=== PATIENT | female | born 1970 | race African-American/Black ===

== ENCOUNTER 2017-07-14 23:02 | Emergency (ER) | payer OTHER ==
[~2017-07-14] VITALS: Ht 149.9 cm; Wt 72.1 kg
[~2017-07-14 23:02] MED LIST: FLOMAX0.4 MG PO; OXAYDO5 MG PO; ZOFRAN ODT8 MG PO
[2017-07-15 00:03] LABS: HEMATOCRIT 36.1 % (36.0-46.0); MCH 30.8 PG (29.0-34.0); MCHC 34.1 G/DL (30.0-36.0); MCV 90.3 FL (83-99); RBC DIS.WIDTH-CV 12.4 % (11.8-14.6); RBC DIS.WIDTH-SD 41.3 % (39-53); WHITE BLOOD COUNT 9.5 K/uL (4.1-10.2)
[2017-07-15 00:14] LABS: CHLORIDE 106 mEq/L (99-109); POTASSIUM 3.8 mEq/L (3.7-5.4); SODIUM 141 mEq/L (136-147)
[2017-07-15 00:16] LABS: GLUCOSE 95 mg/dL (70-99)
[2017-07-15 00:17] LABS: ANION GAP 14 MEQ/L (2-14)
[2017-07-15 00:20] LABS: GFR ESTIMATE (CALCULATED) > 59 mL/min/
[2017-07-15 00:21] LABS: UREA NITROGEN (BUN) 10 mg/dL (9-23)
[2017-07-15 00:32] LABS: QUANTITATIVE HCG < 4.0 MIU/ML
[2017-07-15 01:00] LABS: HEMATOLOGY COMMENT 1 SMEAR COMPATIBLE; PLAT.SUFFICIENCY ADEQUATE; PLATELET COUNT 198 K/uL (156-360)
[2017-07-15 02:39] LABS: ADD MIUA? NO; BILIRUBIN NEGATIVE; BLOOD NEGATIVE; COLOR YELLOW ((YELLOW)); GLUCOSE (STRIP) NEGATIVE; KETONES NEGATIVE; LEUKOCYTES NEGATIVE; NITRITE NEGATIVE; PROTEIN (STRIP) NEGATIVE; SPECIFIC GRAVITY 1.011 (1.000-1.030); UROBILINOGEN 0.2 MG/DL (0.2-1.0)
[2017-07-15 02:44] LABS: UCUL ADDED? NO
[2017-07-15] MEDS ORDERED: TYLENOL WITH C1 EACH PO (03:40)
[2017-07-15 03:57] VITALS: BP 118/95
== END 2017-07-15 03:57 | disposition home or self-care (01) ==
LOC: EME 23:02
DX: R10.9 Unspecified abdominal pain (principal); Z87.442 Personal history of urinary calculi; F17.200 Nicotine dependence, unspecified, uncomplicated; F32.9 Major depressive disorder, single episode, unspecified; Z88.8 Allergy status to other drugs, medicaments and biological substances
CPT/HCPCS: 74176; 80048; 81003; 84702; 85027; 99281; 99284

== ENCOUNTER 2017-12-18 15:42 | Observation (INO) | payer OTHER, BC ==
[~2017-12-18] VITALS: Ht 149.9 cm; Wt 75.2 kg
[~2017-12-18 15:42] MED LIST changes: +TYLENOL WITH C1 EACH PO
[2017-12-18 16:16] LABS: HEMATOCRIT 36.1 % (36.0-46.0); HEMOGLOBIN 12.6 G/DL (11.9-15.5); MCH 31.2 PG (29.0-34.0); MCHC 34.9 G/DL (30.0-36.0); MCV 89.4 FL (83-99); RBC DIS.WIDTH-CV 11.9 % (11.8-14.6); RBC DIS.WIDTH-SD 38.4 % (39-53); RED BLOOD COUNT 4.04 M/uL (3.80-5.20); WHITE BLOOD COUNT 6.6 K/uL (4.1-10.2)
[2017-12-18 16:25] LABS: CHLORIDE 105 mEq/L (99-109); POTASSIUM 3.6 mEq/L (3.7-5.4); SODIUM 138 mEq/L (136-147)
[2017-12-18 16:27] LABS: GLUCOSE 96 mg/dL (70-99)
[2017-12-18 16:31] LABS: CREATININE 0.8 mg/dL (0.6-1.3); GFR ESTIMATE (CALCULATED) > 59 mL/min/
[2017-12-18 16:32] LABS: UREA NITROGEN (BUN) 16 mg/dL (9-23)
[2017-12-18 16:38] LABS: TROP-I INTERPRETATION NEGATIVE; TROPONIN-I < 0.01 ng/mL (0.0-0.30)
[2017-12-18 17:16] LABS: PLAT.SUFFICIENCY ADEQUATE; PLATELET COUNT 211 K/uL (156-360)
[2017-12-18 19:30] LABS: TROP-I INTERPRETATION NEGATIVE; TROPONIN-I < 0.01 ng/mL (0.0-0.30)
[2017-12-18 20:55] LABS: HDL CHOLESTEROL 72 MG/DL (Desirable>=50); LDL CHOLESTEROL 134 mg/dL (Desirable<100); NON-HDL CHOLESTEROL 155 mg/dL (Desirable<160); TOTAL CHOLESTEROL 227 mg/dL (Desirable<200); TRIGLYCERIDES 104 MG/DL (Normal: <150)
[2017-12-18 21:27] LABS: TROP-I INTERPRETATION NEGATIVE; TROPONIN-I < 0.01 ng/mL (0.0-0.30)
[2017-12-18 21:53] VITALS: BP 128/72
[2017-12-19 00:01] VITALS: BP 102/50
[2017-12-19 00:57] LABS: TROP-I INTERPRETATION NEGATIVE; TROPONIN-I < 0.01 ng/mL (0.0-0.30)
[2017-12-19 04:10] VITALS: BP 124/56
[2017-12-19 08:04] VITALS: BP 111/58
[2017-12-19 08:19] LABS: TROP-I INTERPRETATION NEGATIVE; TROPONIN-I < 0.01 ng/mL (0.0-0.30)
== END 2017-12-19 11:30 | disposition home or self-care (01) ==
LOC: EME 15:42 → EDOF 19:48 → 5WEST 19:48 → EDOF 19:48 → ENRESERV 19:50 → 5WEST 21:28 → ENPENDDIS 12-19 → 5WEST 12-19 11:30
PROVIDERS: Hospitalist; Nurse Practitioner Family; Physician Assistant
DX: R07.9 Chest pain, unspecified (principal); Z87.891 Personal history of nicotine dependence; M54.5 Low back pain; Z87.442 Personal history of urinary calculi; Z83.3 Family history of diabetes mellitus; Z88.6 Allergy status to analgesic agent; Z82.3 Family history of stroke
CPT/HCPCS: 71046; 80048; 80061; 84443; 84484; 85027; 93005; 99281; 99285; G0378